=== PATIENT | female | born 1970 | race Caucasian/White ===

== ENCOUNTER → 2022-11-21 | Outpatient (CLI) | payer OTHER, SELFPAY ==
[2022-11-21 16:02] LABS: Absolute Lymphocyte Count 1.51 X10^3/uL (0.83-4.51); Absolute Neutrophil Count 3.7 X10^3/uL (2.0-7.7); Basophil# 0.05 X10^3/uL; Basophil% 0.9 % (0-1); Eosinophil# 0.13 X10^3/uL; Eosinophils% 2.2 % (0-5); Hematocrit 41.9 % (37-47); Hemoglobin 13.1 g/dL (12.0-15.0); Lymphocyte # 1.51 X10^3/ul (0.83-4.51); Lymphocyte % 25.8 % (19-41); Mean Corp Hgb Conc 31.3 g/dL (32-36); Mean Corpuscular Hgb 27.5 pg (27.0-32.0); Mean Corpuscular Volume 87.8 fL (81-99); Mean Platelet Vol. 9.7 fl (6.2-12.0); Monocyte# 0.47 X10^3/uL; NRBC Flagged by Analyzer 0 % (0-5); Neutrophil # 3.67 X10^3/uL (2.7-7.7); Neutrophil % 62.8 % (47-70); Platelet Count 234 K/mm3 (150-450); RBC Distribution Width CV 18.1 % (11.6-14.6); RBC Distribution Width SD 58.1 fl (35.1-43.9); Red Blood Count 4.77 M/mm3 (4.2-5.4); White Blood Count 5.9 K/mm3 (4.4-11.0)
== END | disposition home or self-care (01) ==
PROVIDERS: PCP Nurse Practitioner Primary Care; Referring Provider Nurse Practitioner Women's Health; Visit Provider Nurse Practitioner Women's Health
DX: N93.9 Abnormal uterine and vaginal bleeding, unspecified (principal)
CPT/HCPCS: 36415; 85025

== ENCOUNTER → 2022-11-24 | Outpatient (CLI) | payer OTHER, SELFPAY ==
--- NOTE | 2022-11-24 11:00 | EMB_PTH ---
PATIENT: NIGEL GORDON [facility]: [facility] U#:[id number] AGE/SX: 52/F ROOM: RE11/24/[address]: AUDI Powers : 1970 BED: DIS: 11/24/2022 SPEC #: [id number] RECD: 11/24/22 11:49 STATUS: JOSE REQ #: [id number] HANH: 11/24/22 11:[address]: Elisabeth Dean NP DEPT: SURGICAL PATHOLOGY RECD BY: Tiera Moon ENTERED: 11/24/22 13:04 SP TYPE: ENDOM BX/C MELISSA DR: Lakisha White NP Tissues: Endometrium, NOS Procedures: Surgery Specimen Level IV HEADER OPERATION: Endometrial biopsy PRE-OP DIAGNOSIS: Abnormal uterine bleeding TISSUE SUBMITTED: Endometrial tissue MICROSCOPIC DIAGNOSIS Endometrial biopsy: Proliferative endometrium with glandular and stromal breakdown. See comment. SARAH:anjali 11/25/2022 COMMENT The specimen predominantly consists of blood clots. Clinical correlation and appropriate follow up are necessary. MICROSCOPIC DESCRIPTION Slides are reviewed. GROSS DESCRIPTION Received is one container labeled with the patient's name and not further designated. The specimen consists of multiple irregular fragments of red-ogden soft tissue that in aggregate measure 5.5 x 3.5 x 0.2 cm. The specimen is totally submitted in two cassettes. / AM:anjali 11/24/2022 TC:5 CPT: 20061
[2022-12-02 18:23] LABS: HPV APTIMA, High Risk Negative (Negative)
== END | disposition home or self-care (01) ==
PROVIDERS: PCP Nurse Practitioner Primary Care; Referring Provider Nurse Practitioner Women's Health; Visit Provider Nurse Practitioner Women's Health
DX: N93.9 Abnormal uterine and vaginal bleeding, unspecified (principal); Z12.4 Encounter for screening for malignant neoplasm of cervix
CPT/HCPCS: 87624; 88175; 88305; G0145

== ENCOUNTER → 2022-12-05 | Outpatient (CLI) | payer OTHER, SELFPAY ==
--- NOTE | 2022-12-05 16:37 | US_ITS ---
INDICATION: abnormal uterine bleeding EXAMINATION: Ultrasound US Pelvis Non OB Complete With Transvaginal Imaging TECHNIQUE: Transabdominal and transvaginal pelvic ultrasound was performed. Grayscale, spectral waveform, and color flow Doppler evaluation of the adnexa. COMPARISON: None. FINDINGS: UTERUS: Anteverted. The uterus measures 11.2 x 9.4 x 7.2 cm. Heterogenous myometrium with multiple hypoechoic lesions consistent with fibroids, largest lesion measures 6.0 x 5.8 x 5.4 cm. The endometrial stripe measures 8 mm in AP diameter which is within normal limits. RIGHT OVARY: 2.8 x 2.0 x 1.4 cm. 1.3 cm follicle. There is normal arterial inflow and venous outflow present in the right ovary. LEFT OVARY: 2.7 x 1.7 x 1.5 cm. Dominant follicle measures up to 1.2 cm. There is normal arterial inflow and venous outflow present in the left ovary. FREE FLUID: Small amount in the cul-de-sac. US/Pelvic (Non ) IMPRESSION: Fibroid uterus. Electronically Signed: Darren Connor MD at 17:33 EST ,
== END | disposition home or self-care (01) ==
LOC: US 16:36
PROVIDERS: PCP Nurse Practitioner Primary Care; Referring Provider Nurse Practitioner Women's Health; Visit Provider Nurse Practitioner Women's Health
DX: N93.9 Abnormal uterine and vaginal bleeding, unspecified (principal)
CPT/HCPCS: 76830; 76856

== ENCOUNTER → 2022-12-09 | Outpatient (CLI) | payer OTHER, SELFPAY ==
[2022-12-09 16:27] LABS: Estradiol 56.2 pg/mL; Follicle Stimulating Hormone 4.5 mIU/mL
== END | disposition home or self-care (01) ==
LOC: LAB 15:17
PROVIDERS: PCP Nurse Practitioner Primary Care; Visit Provider Nurse Practitioner Women's Health
DX: N93.9 Abnormal uterine and vaginal bleeding, unspecified (principal)
CPT/HCPCS: 36415; 82670; 83001

== ENCOUNTER 2023-03-17 16:48 | Observation (INO) | payer OTHER, SELFPAY ==
--- NOTE | 2023-03-04 09:17 | EKG12_ITS ---
Test Reason : PRE OP Blood Pressure : / mmHG Vent. Rate : 079 BPM Atrial Rate : 079 BPM P-R Int : 182 ms QRS Dur : 084 ms QT Int : 370 ms P-R-T Axes : 057 -27 051 degrees QTc Int : 424 ms Normal sinus rhythm Septal infarct , age undetermined Abnormal ECG Confirmed by VIDAL ANDERSNO, SONA ([id number]), video effects editor GURJIT DE LEÓN ([id number]) on 03/04/2023 12:56:47 P M Referred By: Rosemary Gomes Confirmed By:FLACA DRAKE MD
[2023-03-04 10:37] LABS: Hematocrit 33.3 % (37-47); Hemoglobin 9.7 g/dL (12.0-15.0); Mean Corp Hgb Conc 29.1 g/dL (32-36); Mean Corpuscular Hgb 22.8 pg (27.0-32.0); Mean Corpuscular Volume 78.4 fL (81-99); Mean Platelet Vol. 9.8 fl (6.2-12.0); Platelet Count 267 K/mm3 (150-450); RBC Distribution Width CV 14.8 % (11.6-14.6); RBC Distribution Width SD 42.2 fl (35.1-43.9); Red Blood Count 4.25 M/mm3 (4.2-5.4); White Blood Count 4.9 K/mm3 (4.4-11.0)
[2023-03-04 10:49] LABS: Magnesium 2.2 mg/dL (1.6-2.6)
[2023-03-04 10:53] LABS: ALB/GLOB Ratio 0.9 RATIO (0.9-2.4); AST(SGOT) 17 U/L (15-37); Alanine Aminotransfer ALT/SGPT 21 U/L (13-56); Albumin, Serum 3.6 g/dL (3.2-5.0); Alkaline Phosphatase 104 U/L (45-117); Anion Gap 9 (5-15); BUN 16 mg/dL (7-18); Calcium,Total 8.7 mg/dL (8.5-10.1); Chloride 109 mmol/L (98-107); Creatinine, Serum 0.84 mg/dL (0.55-1.02); EST Glomerular Filtration Rate 76 mL/min (>60); Est Glom Filt Rate - Afr Amer 92 mL/min (>60); Globulin 3.9 g/dL (2.2-4.2); Glucose 89 mg/dL (74-106); Potassium 3.7 mmol/L (3.5-5.1); Protein, Total 7.5 g/dL (6.4-8.2); Sodium Level 140 mmol/L (136-145)
[2023-03-17] VITALS (18 sets, daily range): BP systolic 116–144; BP diastolic 65–84; PULSE 60–90; RESP 16–22; TEMP 36.4–37.2; O2SAT 97–100; BMI 35.9
[2023-03-17] MEDS: Acetaminophen 500 MG Tablet 1000 MG PO (06:29)
[2023-03-17] MEDS: Phenazopyridine 95 MG Tablet 190 MG PO (06:29)
[2023-03-17] MEDS: Magnesium 1 GM over 15 mins IV (06:30)
[2023-03-17] MEDS: Gabapentin 600 MG Tablet PO (06:30)
[2023-03-17] MEDS: dexAMETHasone 4 MG/ML Vial 8 MG IV (06:30)
[2023-03-17] MEDS: Lactated Ringers 1,000 ML 40 ML IV (06:30)
[2023-03-17] MEDS: Celecoxib 200 MG Capsule 400 MG PO (06:30)
[2023-03-17 06:38] LABS: Internal QC Validated? YES +Cl - CLEAR BKGD; Pregnancy, Serum, hCG Quali. NEGATIVE Negative
--- NOTE | 2023-03-17 07:23 | HP.PCM_ITS ---
History and Physical Date of Admission: 03/17/23 Intake Vital Signs ? 03/04/2311:42 03/04/2311:42 Height 5 ft 6.5 in 5 ft 6.5 in Weight: 224 lb 8 oz ? BMI 35.6 ? BP 156/87 H ? 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: No Is patient in pain?: No Allergies No Known Allergies Allergy (Verified 03/04/23 11:42) Medications aspirin 81 mg tablet,delayed release (Adult Aspirin Regimen) 81 mg PO DAILY 11/24/22 [History Confirmed 03/04/23] norethindrone acetate 5 mg tablet (Aygestin) 5 mg PO .COMPLEX #45 tabs 01/01/23 [Rx Confirmed 03/04/23] ascorbic acid (vitamin C) 500 mg tablet (Vitamin C) 500 mg PO DAILY 03/03/23 [History Confirmed 03/04/23] vzycwqvs-yeu-ivie-FA-Ca carb-vit K 18 mg iron-400 mcg-500 mg tablet 1 tab PO DAILY 03/03/23 [History Confirmed 03/04/23] rimegepant 75 mg disintegrating tablet (Nurtec ODT) 75 mg PO PRN PRN MIGRAINES 03/03/23 [History Confirmed 03/04/23] Post menopausal: No Patient : No : No PFSH Medical History? Anemia Cardiology follow-up encounter CVA (cerebral vascular accident) Gastric reflux History of echocardiogram History of edema History of Holter monitoring Migraine headache Non-smoker Restless legs Surgical History? History of cardiac catheterization Hx of surgical procedure S/P appendectomy S/P lumpectomy, left breast Social History? household members:? spouse and children housing:? house number of children:? 3 current occupational status:? 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 Never smoker alcohol intake:? never substance use type:? does not use seatbelt use:? always do you feel safe at home:? Yes additional social history:? - Luis Alberto- Cook Chef HPI [facility] Details: NIGEL BRITT is a 52 year old who presents for a scheduled hysterectomy. She states that they started most recently this year she began having extreme heavy periods. 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 She had a PFO repair recently which was discovered after she had a CVA. She is only on a baby asa and had a recent appointment with her keypuncher who has granted release for surgery. Recent, ultrasound showed an 11 cm uterus with a 6cm fibroid.? EMB was benign. pap was inconclusive due to too much blood present. She used aygestin to stop her last episode of bleeding but states that she will only use this one more time if needed due to unfavorable side effects of breast tenderness and mood swings. History ? ? ? 3 ? Elective abortions ? Hx Para ? ? ? 3 ? Spontaneous abortions ? Hx # Term Pregnancies ? Ectopic pregnancies ? Hx # Pregnancies ? Multiple births ? # of living children ? Past Pregnancies Del. Date Name GA/Weeks Outcome Route Bth Weight Infant Gen Labor Lgth Anesthesia Del Locatn Provider FOB Unknown Ethel 1996 ? Unknown Ender 1999 ? Unknown Jasper 2001 ? ROS Const ROS Unobtainable: All systems reviewed & are unremarkable except as noted in H Resp Resp: Reports system reviewed and no additional complaints, except as documented; Denies cough GI GI: Reports as per HPI Psych Psych: Reports system reviewed and no additional complaints, except as documented Exam Const General: cooperative, healthy appearing, comfortable and no acute distress Resp Effort & Inspection: normal respiratory effort Skin General: no rashes or lesions noted Psych Appearance: grossly normal Speech and Movement: speech and movement normal Coding Level of Care Code Off vis,est,level 4 Diagnoses Abnormal uterine bleeding (AUB)? N93.9 Vaginal fibroids? D28.1 Assessment and Plan Assessment and Plan (1) Abnormal uterine bleeding (AUB): ?Status:?Acute ?Comment: EMB benign. (2) Vaginal fibroids: ?Status:?Acute ?Comment: Multiple. Largest 6cm. Plan After discussing the patient's diagnosis and treatment plan options, patient wishes to proceed with surgical management.? I have discussed with the patient the risks, benefits, and alternatives of the procedure which include but are not limited to risks of anesthesia, bleeding, infection, possible damage to bowel, bladder, or surrounding vasculature which could lead to additional surgery to evaluate any complications.? Patient agrees to procedure and wishes to proceed.? ACOG/uptodate references given for additional information regarding procedure.? plan for total robotic hysterectomy, bilateral salpingectomy, cystoscopy
--- NOTE | 2023-03-17 07:25 | PCM.DC ---
Discharge Instructions Diet Discharge Diet: No restrictions Activity May resume sexual activity in: 6 weeks Weight Bearing Status: Full weight bearing Dressing / Incision Call your doctor if your incision/area has: Continuous Slow Oozing, Sudden Increased Bleeding, Increased Pain/ Swelling, Increased Redness and Foul Smelling Discharge Call your doctor if you observe: Fever of 101 or Higher, Using more than 1 pad per hour, Shortness of breath, Chest pain and Uncontrolled pain Suture Line Care: Avoid Pulling/Pushing and Avoid Pinching/Bending Remove Dressing in: 1 week (if present) Cleanse incision/area with: Soap & Water and Keep Dressing Clean & Dry Follow Up Care Please Follow Up With: Rosemary Gomes DO When: Call to make an appointment with your doctor for a postop visit in 2 and 6 weeks Test Results: Test results from this visit will be discussed in further detail at your follow-up appointment, if applicable. Discharge Plan Admission Primary Reason for Your Visit: hysterectomy Attending Provider: Rosemary Gomes Primary Care Provider: Lakisha White NP Discharge Orders/Prescriptions Prescriptions: New oxycodone-acetaminophen [Percocet] 5-325 mg tablet 1 tab PO Q4H PRN (Reason: pain) 7 Days Qty: 30 0RF Rx Instructions: 1-2 tabs q 4 hrs as needed for pain naproxen 500 mg tablet 500 mg PO BID PRN (Reason: pain) Qty: 30 0RF Continued aspirin [Adult Aspirin Regimen] 81 mg tablet,delayed release (DR/EC) 81 mg PO DAILY norethindrone acetate [Aygestin] 5 mg tablet 5 mg PO .COMPLEX Qty: 45 3RF Rx Instructions: 5 mg PO tid until bleeding stops X 24 hr then bid to finish Rx ascorbic acid (vitamin C) [Vitamin C] 500 mg Tablet 500 mg PO DAILY jp-op-eyhk-FA-Ca carb-vit K 18 mg iron-400 mcg-500 mg Tablet 1 tab PO DAILY Nurtec ODT 75 mg tablet,disintegrating 75 mg PO PRN PRN (Reason: MIGRAINES) Label Comments: DISSOLVE ONE TAB IN MOUTH NEEDED FOR ACUTE TREATMENT OF MIGRAINE NOT TO EXCEED 1 TAB IN 24 HOURS Referrals / Follow Up: Lakisha White NP, TE[employer] AND SPICE SUPERVISOR-C [Primary Care Provider] - Disposition Disposition (needs filled in before D/C Order can be placed): Home, Self Care
[2023-03-17 07:30] LABS: Bedside Glucose 109 mg/dL (74-106)
--- NOTE | 2023-03-17 07:30 | HYST_PTH ---
PATIENT: NIGEL GORDON LOC: [facility] U#:[id number] AGE/SX: 52/F ROOM: NE318 RE03/17/[address]: Dr. Rosemary Gomes DO : 1970 BED: 1 DIS: 03/18/2023 SPEC #: [id number] RECD: 03/17/23 14:20 STATUS: JOSE TAYMagaly #: [id number] HANH: 03/17/23 07:[address]: Rosemary Gomes DEPT: SURGICAL PATHOLOGY RECD BY: Geovany Lofton ENTERED: 03/18/23 09:25 SP TYPE: HYSTERECT OTHR DR: Lakisha White NP Tissues: Uterus, NOS Procedures: Surgery Specimen Level V HEADER OPERATION: ERAS, laparoscopic robotic hysterectomy, bilateral salpingectomy PRE-OP DIAGNOSIS: Abnormal uterine bleeding, vaginal fibroids TISSUE SUBMITTED: Uterus, cervix, bilateral fallopian tubes MICROSCOPIC DIAGNOSIS Uterus, hysterectomy: Cervix ? nabothian cysts and mild chronic inflammation. Endometrium ? secretory endometrium. Myometrium ? leiomyomas and adenomyosis. Right fallopian tube ? benign paratubal cysts. Left fallopian tube - No pathologic change. AM:anjali 03/19/2023 MICROSCOPIC DESCRIPTION Slides are reviewed. GROSS DESCRIPTION Received in fixative is one container labeled with the patient's name and designated uterus. The specimen consists of a uterus with attached cervix, attached right fallopian tube and detached left fallopian tube. The uterus with cervix measures 11.6 x 9.0 x 7.2 cm and weighs 288 gm. The ectocervix is grossly unremarkable. The endocervical canal measures 3.2 cm in length and is grossly unremarkable. The elongated endometrial cavity measures 5.0 x 3.0 cm. The reddish-ogden endometrium measures up to 0.2 cm in thickness. The myometrium measures 2.0 cm in average thickness and is distorted by multiple spherical rubbery nodules ranging in size from 0.5 to 5.0 cm. Cut surfaces display a whorled appearance without areas of cyst formation, necrosis or hemorrhage. The right and left fallopian tubes are similar in appearance with average lengths of 6.0 cm and average diameters of 0.8 cm. The left fallopian tube does not contain a distinct fimbrial end. Director Of Research sections are submitted in 11 cassettes as follows: 1 - anterior cervix, 2 - posterior cervix, 3 & 4 - anterior uterine wall, 5 & 6 - posterior uterine wall, 7??largest myometrial mass, 8 - second largest myometrial mass, 9 - third largest myometrial mass, 10??right fallopian tube, 11 - left fallopian tube. / AM:anjali 03/18/2023 TC:1 CPT: 54439
[2023-03-17] MEDS: Cefazolin 2 GM in 0.9% Normal Saline 100 ML IV (07:37)
[2023-03-17] MEDS: Bupivacaine 0.25% 30 ML Vial (09:30)
--- NOTE | 2023-03-17 09:30 | PCM.OPRPT ---
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 normal appearing fallopian tubes and ovaries. Upon entry into the urethra during cystoscopy, there appeared to be some sort of false passage or diverticulum. Intraoperative discussion with Dr. Chi recommendations to follow up out patient with urology Surgeon: Rosemary Gomes fire services plumber: Alexandra Salmeron Type of Anesthesia: General Anesthesiologist: Dion Chew Specimen's removed: uterus and fallopian tubes Estimated Blood Loss (mL): 50cc Description of Procedure: Reason for surgery: This is a 52-year-old G3, P3 who presented to my office with history of heavy vaginal bleeding and an enlarged fibroid uterus the planned procedure is for a robotic hysterectomy the risks benefits and alternatives were discussed with the patient the patient had a clear understanding of the procedure and a consent form was signed. Procedure: The patient was placed in the dorsal low lithotomy position and prepped and draped in the normal sterile fashion both abdominally and in the perineum. Her legs were placed in stirrups a Ibrahim catheter was inserted into the urethra without difficulty. A weighted speculum was placed in the vagina and a single-tooth tenaculum was used to grasp the anterior lip of the cervix. A 3.0 cup size advincula uterine manipulator was inserted through the cervix without complication. It was then tied into place at the 2 and 10:00 locations on the cervix. Gloves were changed and attention was turned towards the abdomen. Approximately 23 cm above the pubic symphysis in the midline, and after Marcaine injection, a 8 mm incision was made. An 8 mm trocar was inserted through the laparoscope, then inserted into the abdomen under direct visualization using the laparoscope. Good abdominal placement was noted and no complications were appreciated. An air seal device was utilized to create pneumoperitoneum. At 12 cm lateral to the midline on the left and right sides 8 mm accessory ports were placed. Next a left upper quadrant 8 mm yard assistant port site was placed. The patient was placed in steep Trendelenburg position. The robot was docked. The hysterectomy was initiated first by taking down the round ligament on each side using the vessel sealer device. The broad ligament was then and taken down using the vessel sealer device. Next the bladder flap was taken down without complication. This was done using monopolar cautery to the level of the cervical vaginal junction. After the bladder flap was created, uterine vessels were then isolated and cauterized using the vessel sealer device and EndoShears. At this point the uterine vessels were taken down further starting from the ascending branch, dissecting along the edges of the cervix to the level of the cervical vaginal junction with hemostasis appreciated. The cervical vaginal junction was then using monopolar cautery in a circumferential pattern across the superior aspect of the cervix. The specimen was delivered through the vagina and sent to pathology. The remaining vaginal cuff was then closed using V lock suture and one 2-0 vicryl at the right corner edge of the incision. This was performed in a running technique. Excellent hemostasis was obtained and good closure was noted. Irrigation was then performed. All operative sites were noted to be hemostatic. A cystoscopy was performed with a 70 degree cystoscope through the urethra and there was noted to be a false passage or diverticulum. The fluid was turned off and urology was called. Dr. Chi suspected either scar tissue or a diverticulum and since hemostatic and Ibrahim passed into bladder easily, the decision was to abort the cystoscopy due to low suspicion for ureteral or bladder injury and recommendations are to follow up outpatient with urology. The abdominal cavity was again examined using the laparoscope after the robot was undocked. All operative sites were noted to have a small amount of blood seeping through the stitches. Fibrilar was applied and then the cuff was noted to be hemostatic. The trochars were removed under direct visualization without complication and pneumoperitoneum was reduced. At this point the skin was then closed using 4-0 Monocryl subcuticular stitch and sealed with surgical glue. The patient tolerated the procedure well sponge lap and needle counts were correct x2 the patient was taken to the recovery room in stable condition. Grafts/Implants Used: none Complications none Admit VTE Documentation VTE Present on Admission: Yes VTE Mechan Device Prophylaxis: SCD's VTE Pharm Prophylaxis ordered?: Yes Multi Select Codes Urinary/Genital Urinary/Genital CPT Codes: 80211 TLH+BS/O >250gr uterus
[2023-03-17] MEDS: Lactated Ringers @ 70 MLS/HR 70 ML IV (09:55)
[2023-03-17] MEDS: LACTATED RINGERS 500 ML 999 ML IV (11:30)
[2023-03-17] MEDS: Lactated Ringers 1,000 ML 100 ML IV ×3 (12:07→21:05)
[2023-03-17] MEDS: Ondansetron 4 MG/2 ML Vial IV (12:33)
[2023-03-17] MEDS: HYDROcodone Bitartrate/Apap 5/325 Tablet PO ×2 (13:11→14:59)
[2023-03-17] MEDS: Ketorolac 30 MG/ML Syringe IV ×2 (18:05→23:04)
[2023-03-17] MEDS: HYDROmorphone Inj 0.2 MG/ML SYRINGE IV (20:00)
[2023-03-17] MEDS: Aspirin 81 MG TAB.CHEW PO (21:12)
[2023-03-18 03:15] VITALS: BP 126/78; PULSE 86; RESP 18; TEMP 37.2; O2SAT 97
[2023-03-18] MEDS: Lactated Ringers 1,000 ML 100 ML IV (05:13)
[2023-03-18] MEDS: Ketorolac 30 MG/ML Syringe IV (05:13)
[2023-03-18 06:52] LABS: Hematocrit 27.2 % (37-47); Mean Corp Hgb Conc 29.4 g/dL (32-36); Mean Corpuscular Hgb 22.6 pg (27.0-32.0); Mean Corpuscular Volume 76.8 fL (81-99); Mean Platelet Vol. 9.8 fl (6.2-12.0); Platelet Count 277 K/mm3 (150-450); RBC Distribution Width CV 15.8 % (11.6-14.6); RBC Distribution Width SD 43.8 fl (35.1-43.9); Red Blood Count 3.54 M/mm3 (4.2-5.4)
[2023-03-18 07:41] VITALS: BP 124/78; PULSE 66; RESP 18; TEMP 37.1; O2SAT 100
[2023-03-18] MEDS: HYDROcodone Bitartrate/Apap 5/325 Tablet PO (07:47)
--- NOTE | 2023-03-18 07:50 | PCM.PN.OB ---
Subjective Subjective Patient is laying in bed comfortably without complaints. She states that she slept well last night, voiding and eating without difficulty and wants to go home today. Objective Data Objective Data Vital Signs: Vital Signs Temp Pulse Resp BP Pulse Ox O2 Del Method O2 Flow Rate 98.7 F 66 18 124/78 H 100 Room Air 4 03/18/23 07:41 03/18/23 07:41 03/18/23 07:41 03/18/23 07:41 03/18/23 07:41 03/18/23 07:41 03/17/23 12:00 Oxygen Flow Rate (L/min) 4 Oxygen Delivery Method Room Air Weight: 222 lb 10.67 oz Body Mass Index (BMI) 35.9 Intake & Output: Intake and Output for Last 24 Hours 03/16/23 03/17/23 03/18/23 23:59 23:59 23:59 Intake Total 4392.5 / 4392.5 813.33 / 813.33 Output Total 1000 / 1000 Balance 3392.5 / 3392.5 813.33 / 813.33 Lab / Micro Data Result Diagrams: 03/18/23 06:15 03/04/23 09:26 Labs: Laboratory Results - last 24 hr 03/18/23 06:15: WBC 7.0, RBC 3.54 L, Hgb 8.0 L, Hct 27.2 L, MCV 76.8 L, MCH 22.6 L, MCHC 29.4 L, RDW Std Deviation 43.8, RDW Coeff of Amanda 15.8 H, Plt Count 277, MPV 9.8 ROS Constitutional Constitutional: Reports systems reviewed and no addt'l complaints, except as documented Cardiovascular Cardiovascular: Denies chest pain, dizziness, dyspnea or irregular heart rhythm Respiratory/Chest Respiratory/Chest: Denies cough, pain on inspiration or shortness of breath at rest Gastrointestinal Gastrointestinal: Denies abdominal pain, nausea or vomiting Genitourinary Genitourinary: Denies burning urination Musculoskeletal Musculoskeletal: Denies muscle cramps, muscle spasms or muscle weakness Neurologic Neurologic: Denies confusion, dizziness, headache(s) or lack of coordination Psychiatric Psychiatric: Denies anxiety, behavioral changes or depression Physical Exam HEENT normocephalic Resp normal respiratory effort and normal air movement GI soft to palpation, non-tender and non-distended Rectal Exam: other Other Details: Incision is clean, dry, and intact no CVA tenderness Extremity normal to inspection General Extremity: edema bilateral (trace ) Assessment & Plan (1) Status post hysterectomy: PLAN: patient is s/p TRH, POD 1 1. routine ERAS protocol postop care- increase ambulation, encourage oral intake and oral control of pain. lovenox and scds for dvt prophylaxis, patient stable for discharge to home. 2. follow up with hem/onc for possible iron infusion. take po iron in meantime 3. 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 (3) Anemia:
[2023-03-18 10:16] VITALS: BP 124/78; PULSE 66; RESP 18; TEMP 37.1; O2SAT 100
--- NOTE | 2023-03-18 10:33 | PHA.DC.MR ---
Pharmacy Service has performed discharge medication reconciliation for this patient. The patient's discharge medication list was reviewed for discrepancies and discrepancies were resolved. Medication papers prepared, attempted to career counselor, patient already discharged. Home Medications aspirin 81 mg tablet,delayed release (Adult Aspirin Regimen) 81 mg PO DAILY 11/24/22 norethindrone acetate 5 mg tablet (Aygestin) 5 mg PO .COMPLEX #45 tabs 01/01/23 ascorbic acid (vitamin C) 500 mg tablet (Vitamin C) 500 mg PO DAILY 03/03/23 lvyjcasz-vdv-aiwb-FA-Ca carb-vit K 18 mg iron-400 mcg-500 mg tablet 1 tab PO DAILY 03/03/23 rimegepant 75 mg disintegrating tablet (Nurtec ODT) 75 mg PO PRN PRN MIGRAINES 03/03/23 naproxen 500 mg tablet 500 mg PO BID PRN pain #30 tabs 03/17/23 oxycodone-acetaminophen 5 mg-325 mg tablet (Percocet) 1 tab PO Q4H PRN pain 7 days #30 tabs 03/17/23
== END 2023-03-18 10:31 | disposition home or self-care (01) ==
LOC: SDC 03-18 08:44 → MS3 03-18 08:44
PROVIDERS: Anesthesiology; Admitting Provider Obstetrics & Gynecology; PCP Nurse Practitioner Primary Care; Referring Provider Obstetrics & Gynecology; Visit Provider Obstetrics & Gynecology
PROC: 0UT90ZZ Resection of Uterus, Open Approach (ICD-10-PCS; CPT 58573; principal; 2023-03-17 07:10)
DX: D25.9 Leiomyoma of uterus, unspecified (principal); N93.9 Abnormal uterine and vaginal bleeding, unspecified; Z79.899 Other long term (current) drug therapy; Z79.82 Long term (current) use of aspirin; K21.9 Gastro-esophageal reflux disease without esophagitis; Z86.73 Personal history of transient ischemic attack (TIA), and cerebral infarction without residual deficits
CPT/HCPCS: 58573; S2900; 00840; 36415; 80053; 82962; 83735; 84703; 85027; 86850; 86900; 86901; 88307; 93005; 96361; 96374; 96375; 96376; 99221; J7120; G0378; J2405; J3475

== ENCOUNTER → 2023-04-30 | Outpatient (CLI) | payer OTHER, SELFPAY ==
[2023-04-30 17:04] LABS: Absolute Lymphocyte Count 1.76 X10^3/uL (0.83-4.51); Basophil# 0.04 X10^3/uL; Basophil% 0.8 % (0-1); Eosinophil# 0.12 X10^3/uL; Eosinophils% 2.3 % (0-5); Hematocrit 35.2 % (37-47); Hemoglobin 9.9 g/dL (12.0-15.0); Lymphocyte # 1.76 X10^3/ul (0.83-4.51); Lymphocyte % 33.3 % (19-41); Mean Corp Hgb Conc 28.1 g/dL (32-36); Mean Corpuscular Hgb 20.9 pg (27.0-32.0); Mean Corpuscular Volume 74.3 fL (81-99); Mean Platelet Vol. 9.8 fl (6.2-12.0); Monocyte% 7.6 % (0-10); NRBC Flagged by Analyzer 0 % (0-5); Neutrophil # 2.95 X10^3/uL (2.7-7.7); Neutrophil % 55.8 % (47-70); Platelet Count 255 K/mm3 (150-450); RBC Distribution Width CV 17.3 % (11.6-14.6); RBC Distribution Width SD 45.8 fl (35.1-43.9); Red Blood Count 4.74 M/mm3 (4.2-5.4); White Blood Count 5.3 K/mm3 (4.4-11.0)
== END | disposition home or self-care (01) ==
LOC: LAB 16:23
PROVIDERS: PCP Nurse Practitioner Primary Care; Referring Provider Obstetrics & Gynecology; Visit Provider Obstetrics & Gynecology
DX: D64.9 Anemia, unspecified (principal)
CPT/HCPCS: 36415; 85025